=== PATIENT | male | born 1980 | race Caucasian/White ===

== ENCOUNTER 2018-01-25 18:45 | Emergency (ER) | payer SELFPAY ==
[~2018-01-25] VITALS: Ht 167.6 cm; Wt 66.7 kg
[2018-01-25] MEDS ORDERED: IBUPROFEN 600MG TABLET PO STA (20:03)
[2018-01-25 21:09] LABS: CLARITY URINE CLEAR (CLEAR); COLOR URINE YELLOW (YELLOW); KETONES URINE NEGATIVE (NEGATIVE); LEUKOCYTE ESTERASE URINE NEGATIVE (NEGATIVE); NITRITE URINE NEGATIVE (NEGATIVE); OCCULT BLOOD URINE 1+ (NEGATIVE); PROTEIN URINE TRACE (NEGATIVE); SPECIFIC GRAVITY URINE 1.042 (1.005-1.030); UROBILINOGEN URINE 0.2 E.U./dL (0.2-1.0)
[2018-01-25 22:17] VITALS: BP 118/65
== END 2018-01-25 22:20 | disposition home or self-care (01) ==
LOC: ER 18:45
DX: M54.5 Low back pain (principal); N39.0 Urinary tract infection, site not specified
CPT/HCPCS: 72100; 81003; 99285